=== PATIENT | female | born 1980 | race Two or more races ===

== ENCOUNTER 2025-05-08 07:43 | Emergency (ER) | payer MEDICAID, SELFPAY ==
[2025-05-08 07:43] VITALS: BMI 28.3
[2025-05-08 07:57] VITALS: BP 122/82; PULSE 88; RESP 18; TEMP 36.9; O2SAT 99
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
== END 2025-05-08 09:48 | disposition home or self-care (01) ==
PROVIDERS: Emergency Provider Family Medicine
DX: S13.4XXA Sprain of ligaments of cervical spine, initial encounter (principal); S80.812A Abrasion, left lower leg, initial encounter; R51.9 Headache, unspecified; M25.512 Pain in left shoulder; V89.2XXA Person injured in unspecified motor-vehicle accident, traffic, initial encounter
CPT/HCPCS: 70450; 72125; 73030; 73590; 99283